=== PATIENT | female | born 1985 ===

== ENCOUNTER 2018-02-14 18:20 | Emergency (ER) | payer MEDICAID, OTHER ==
[2018-02-14 18:25] VITALS: BMI 26.6
[2018-02-14] MEDS ORDERED: Sodium Chloride 0.9% 1,000 ML IV STA (18:39)
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
[2018-02-14 20:16] LABS: ALB/GLOB RATIO 1.6 (1.1-1.8); ALBUMIN 4.2 g/dL (3.0-4.8); ALT/SGPT 26 U/L (7-56); AST/SGOT 22 U/L (14-36); BLOOD UREA NITROGEN 11 mg/dL (7-21); CALCIUM 9.2 mg/dL (8.4-10.5); GFR AFRICAN-AMERICAN > 60; GFR NON-AFRICAN AMERICAN > 60
[2018-02-14 20:24] LABS: BASO # 0.03 K/mm3 (0.0-2.0); BASO % 0.3 % (0.0-3.0); EOS # 0.3 (0.0-0.7); GRAN # 6.08 (1.4-6.5); GRAN % 57.5 % (50.0-68.0); HEMOGLOBIN 12.4 g/dL (12.0-16.0); LYMPH # 3.6 (1.2-3.4); LYMPH % 33.9 % (22.0-35.0); MEAN CELL VOLUME 86.5 fl (80.0-105.0); MEAN CORPUSCULAR HEMOGLOBIN 29.5 pg (25.0-35.0); MEAN CORPUSCULAR HGB CONC 34.1 g/dl (31.0-37.0); MEAN PLATELET VOLUME 10.9 fl (7.0-11.0); MONO # 0.6 (0.1-0.6); MONO % 5.3 % (1.0-6.0); RBC 4.21 10^6/uL (3.5-6.1); RED CELL DISTRIBUTION WIDTH 13.5 % (11.5-14.5); WHITE BLOOD COUNT 10.6 10^3/ul (4.5-11.0)
[2018-02-14 20:26] LABS: INR 1.04 (0.93-1.08); PARTIAL THROMBOPLASTIN TIME 30.6 Seconds (25.1-36.5); PROTHROMBIN TIME 11.9 SECONDS (9.4-12.5)
[2018-02-14 21:58] VITALS: PULSE 72
[2018-02-14 22:03] LABS: URINE BILIRUBIN NEGATIVE (NEGATIVE); URINE BLOOD LARGE (NEGATIVE); URINE GLUCOSE (UA) NEGATIVE (NEGATIVE); URINE LEUKOCYTE ESTERASE MODERATE Leu/uL (NEGATIVE); URINE PROTEIN NEGATIVE mg/dL (<30 mg/dL); URINE UROBILINOGEN 0.2 E.U./dL (<1 E.U./dL)
[2018-02-14 22:04] LABS: URINE APPEARANCE CLEAR (CLEAR); URINE COLOR YELLOW (YELLOW)
[2018-02-14 22:14] LABS: HCG,QUALITATIVE URINE POSITIVE (NEGATIVE)
[2018-02-14 22:33] LABS: URINE WBC 15 - 20 /hpf (0-6)
[2018-02-14 22:34] LABS: URINE BACTERIA SMALL (NEG)
[2018-02-14 22:41] VITALS: BP 116/97; RESP 18; TEMP 98.5; O2SAT 97
--- NOTE | 2018-02-15 09:41 | US ---
PROCEDURE: OB Pelvic Ultrasound HISTORY: abdominal pain/ COMPARISON: None available. FINDINGS: UTERUS: Single Live intrauterine gestation. CRL measures 0.45 cm equivalent to 6 weeks and 1 day gestatioin Gestational sac diameter measures 1.57 cm equivalent to 5 weeks and 6 days gestation Yolk sac is visualized. cardiac activity is not documented on the current examination. Date of delivery (Ultrasound estimated) : 10/10/2018 Sita-gestational hemorrhage: None. CERVIX: Long and closed. No cervical abnormality seen. RIGHT OVARY: Measures 3.3 x 1.8 x 2.4 cm. No mass. Normal flow. LEFT OVARY: Measures 3.6 x 2.7 x 3.2 cm. No mass. Normal flow. There is a 2.2 x 2.2 x 2.1 cm corpus luteum cyst. FREE FLUID: None. OTHER FINDINGS: None. IMPRESSION: Single intrauterine gestational with mean gestational age weeks and 0 days. Yolk sac and pole are identified however cardiac activity is not documented on the current examination which could be related to early gestation. Clinical follow-up is advised and follow-up imaging is recommended to confirm viability. A preliminary report was provided by [facility].
== END 2018-02-14 22:15 | disposition home or self-care (01) ==
LOC: ED 18:20
DX: O23.41 Unspecified infection of urinary tract in pregnancy, first trimester (principal); O20.0 Threatened abortion; Z3A.01 Less than 8 weeks gestation of pregnancy
CPT/HCPCS: 76817; 80053; 81001; 84702; 84703; 85025; 85610; 85730; 86850; 86900; 87086; 99283; J7030

== ENCOUNTER 2018-05-01 07:38 | Emergency (ER) | payer MEDICAID, OTHER ==
[2018-05-01 07:38] VITALS: BMI 26.6
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
[2018-05-01] MEDS ORDERED: Morphine 4 mg/ml ISec IVP STA (08:12)
[2018-05-01] MEDS ORDERED: Sodium Chloride 0.9% 1,000 ML IV SCH (08:15)
[2018-05-01 08:37] LABS: BASO # 0.02 K/mm3 (0.0-2.0); BASO % 0.2 % (0.0-3.0); EOS # 0.2 (0.0-0.7); EOS % 2.1 % (1.5-5.0); GRAN # 6.68 (1.4-6.5); HEMOGLOBIN 12.5 g/dL (12.0-16.0); LYMPH # 2.8 (1.2-3.4); LYMPH % 26.8 % (22.0-35.0); MEAN CELL VOLUME 87.5 fl (80.0-105.0); MEAN CORPUSCULAR HEMOGLOBIN 29.4 pg (25.0-35.0); MEAN CORPUSCULAR HGB CONC 33.6 g/dl (31.0-37.0); MEAN PLATELET VOLUME 11.1 fl (7.0-11.0); MONO # 0.6 (0.1-0.6); MONO % 5.9 % (1.0-6.0); RBC 4.25 10^6/uL (3.5-6.1); RED CELL DISTRIBUTION WIDTH 13.3 % (11.5-14.5); WHITE BLOOD COUNT 10.3 10^3/ul (4.5-11.0)
[2018-05-01 08:40] LABS: PH,URINE 5.5 (4.7-8.0); URINE BILIRUBIN NEGATIVE (NEGATIVE); URINE BLOOD NEGATIVE (NEGATIVE); URINE GLUCOSE (UA) NEGATIVE (NEGATIVE); URINE LEUKOCYTE ESTERASE TRACE Leu/uL (NEGATIVE); URINE PROTEIN NEGATIVE mg/dL (<30 mg/dL); URINE UROBILINOGEN 0.2 E.U./dL (<1 E.U./dL)
[2018-05-01 08:44] LABS: URINE APPEARANCE CLEAR (CLEAR); URINE COLOR YELLOW (YELLOW)
[2018-05-01 09:02] LABS: ALB/GLOB RATIO 1.5 (1.1-1.8); ALBUMIN 4.4 g/dL (3.0-4.8); ALT/SGPT 27 U/L (7-56); AST/SGOT 26 U/L (14-36); BLOOD UREA NITROGEN 9 mg/dL (7-21); CALCIUM 9.1 mg/dL (8.4-10.5); GFR NON-AFRICAN AMERICAN > 60; LIPASE 95 U/L (23-300)
[2018-05-01 09:14] LABS: URINE RBC 0 - 2 /hpf (0-2)
[2018-05-01 09:15] LABS: URINE BACTERIA MOD (NEG)
--- NOTE | 2018-05-01 10:44 | US ---
Date of service: 05/01/2018 HISTORY: pelvic pain, ?retained products COMPARISON: None available. TECHNIQUE: Transabdominal and transvaginal FINDINGS: UTERUS: Measures 7.1 x 4.5 x 5.0 cm. Normal in size and appearance. No fibroid or other mass lesion seen. ENDOMETRIUM: Measures 10 mm in diameter. Unremarkable. CERVIX: No cervical abnormality identified. RIGHT OVARY: Measures 4.2 x 3.6 x 3.2 cm. No solid mass. Normal flow. Simple cyst, 2.6 x 1.9 x 2.3 cm. LEFT OVARY: Measures 2.3 x 2.1 x 2.0 cm. No solid mass. Normal flow. FREE FLUID: There is free fluid in the pelvis. Uncertain significance. OTHER FINDINGS: None. IMPRESSION: No evidence of retained products of conception. Small amount of free fluid is noted in the pelvis, of uncertain significance.
[2018-05-01 12:58] VITALS: BP 120/72; PULSE 78; RESP 18; TEMP 98.5; O2SAT 99
== END 2018-05-01 13:01 | disposition home or self-care (01) ==
LOC: ED 07:38
DX: O23.40 Unspecified infection of urinary tract in pregnancy, unspecified trimester (principal); Z3A.00 Weeks of gestation of pregnancy not specified; O26.899 Other specified pregnancy related conditions, unspecified trimester; R10.31 Right lower quadrant pain
CPT/HCPCS: 76830; 80053; 81001; 83690; 84702; 85025; 87086; 99284; J7030